=== PATIENT | female | born 1975 | race Hispanic/Latino ===

== ENCOUNTER 2021-03-29 07:43 | Inpatient (IN) | payer MEDICAID, OTHER ==
[~2021-03-29] VITALS: Ht 170.2 cm; Wt 81.6 kg
[2021-03-29] MEDS ORDERED: HYDROCODONE/ACETAMINOPHEN 5/325 MG TAB PO ONE (10:30)
[2021-03-29] MEDS ORDERED: KETOROLAC 15MG/ML VIAL (15MG/ML) IM ONE (10:30)
[2021-03-29 10:57] LABS: BASOPHILS % (AUTO) 0.3 % (0.0-5.0); EOSINOPHILS % (AUTO) 1.1 % (0.0-8.0); LYMPHOCYTES % (AUTO) 5.4 % (21.0-51.0); MEAN CORPUSCULAR HEMOGLOBIN 22.2 pg (27.0-33.0); MEAN CORPUSCULAR VOLUME 73.9 fL (79-99); NEUTROPHILS % (AUTO) 87.5 % (40.0-77.0); PLATELET COUNT (AUTO) 314 K/uL (130-400); RED BLOOD CELL COUNT(AUTO) 5.01 MIL/uL (4.00-5.50); RED CELL DISTRIBUTION WIDTH 17.4 % (11.0-15.5); WHITE BLOOD COUNT (AUTO) 14.1 K/uL (4.8-10.8)
[2021-03-29] MEDS ORDERED: MORPHINE 2 MG SYG IVP ONE (11:00)
[2021-03-29] MEDS ORDERED: ONDANSETRON 4MG INJ IVP ONE (11:00)
[2021-03-29] MEDS ORDERED: ACETAMINOPHEN 500 MG TABLET PO ONE (11:00)
[2021-03-29 11:09] LABS: CARBON DIOXIDE 24 mmol/L (21-32); CHLORIDE 105 mmol/L (101-111); CREATININE 0.8 mg/dL (0.5-1.5); GLOMERULAR FILTR. RATE CALC 83 mL/min (>60); GLUCOSE,RANDOM 150 mg/dL (70-105); POTASSIUM 4.3 mmol/L (3.5-5.1); SODIUM SERUM 140 mmol/L (136-145); UREA NITROGEN, BLOOD 9 mg/dL (7-18)
[2021-03-29 11:13] LABS: ALANINE AMINOTRANSFERASE 54 U/L (12-78); ALBUMIN 3.8 g/dL (3.5-5.0); ALCOHOL, BLOOD < 3 mg/dL (0-10); ASPARTATE AMINOTRANSFERASE 60 U/L (10-37); BILIRUBIN,TOTAL 0.4 mg/dL (0.2-1.0); TOTAL PROTEIN, SERUM 7.7 g/dL (6.0-8.3)
[2021-03-29] MEDS ORDERED: ONDANSETRON 4MG INJ ONE (12:06)
[2021-03-29] MEDS ORDERED: ACETAMINOPHEN 500 MG TABLET ONE ×2 (12:06→12:07)
[2021-03-29] MEDS ORDERED: MORPHINE 2 MG SYG ONE (12:07)
[2021-03-29] MEDS ORDERED: ONDANSETRON 4MG INJ IVP PRN (13:30)
[2021-03-29] MEDS ORDERED: MORPHINE 4 MG SYG IM PRN (13:30)
[2021-03-29] MEDS: 0.9%NACL 1000ML 1,000 ML IV SCH (14:34)
[2021-03-29 17:39] VITALS: BP 172/83
[2021-03-29 17:41] VITALS: BP 125/67
[2021-03-29] MEDS: KETOROLAC 30MG VIAL (30MG/ML) IV PRN (19:24)
[2021-03-29 20:19] VITALS: BP 112/67
[2021-03-29 22:05] LABS: APPEARANCE,URINE Clear (CLEAR); BILIRUBIN,URINE Negative (NEGATIVE); COLOR,URINE Yellow (YELLOW); GLUCOSE, URINE (UA) Negative (NEGATIVE); KETONES,URINE 15 mg/dL (NEGATIVE); LEUKOCYTE ESTERASE ,URINE Small (NEGATIVE); NITRATE,URINE Negative (NEGATIVE); OCCULT BLOOD,URINE Trace (NEGATIVE); PH,URINE 5.5 (5.0-8.0); PROTEIN,URINE POS 1+ mg/dL (NEGATIVE)
[2021-03-29 22:14] LABS: BACTERIA,URINE Few /HPF (None Seen); RBC,URINE 0-1 /HPF (0-1); SQUAMOUS EPITHELIAL CELL,UR 0-2 /HPF (0-2)
[2021-03-29 23:55] VITALS: BP 101/59
[2021-03-30] MEDS: KETOROLAC 30MG VIAL (30MG/ML) IV PRN ×2 (02:38→10:03)
[2021-03-30 05:12] VITALS: BP 110/68
[2021-03-30 07:05] VITALS: BP 109/66
[2021-03-30 11:00] VITALS: BP 119/72
[2021-03-30 15:15] VITALS: BP 109/72
[2021-03-30] MEDS: 0.9%NACL 1000ML 1,000 ML IV SCH (17:46)
[2021-03-30] MEDS: ACETAMINOPHEN WITH CODEINE 1 TAB TAB PO PRN (18:39)
[2021-03-30 20:00] VITALS: BP 114/54
[2021-03-31] VITALS: BP 124/67
[2021-03-31 04:00] VITALS: BP 110/60
[2021-03-31] MEDS: ACETAMINOPHEN WITH CODEINE 1 TAB TAB PO PRN ×3 (05:28→21:02)
[2021-03-31 08:11] VITALS: BP 116/78
[2021-03-31 11:01] VITALS: BP 110/67
[2021-03-31 19:35] VITALS: BP 110/56
[2021-04-01] VITALS: BP 107/64
[2021-04-01 03:51] VITALS: BP 117/72
[2021-04-01] MEDS: ACETAMINOPHEN WITH CODEINE 1 TAB TAB PO PRN (06:15)
[2021-04-01 08:00] VITALS: BP 102/50
[2021-04-01] MEDS ORDERED: LACTULOSE 20 GM/30 ML UDCUP PO SCH (10:30)
[2021-04-01 12:00] VITALS: BP 106/59
[2021-04-01 16:00] VITALS: BP 111/70
== END 2021-04-01 19:10 | disposition home or self-care (01) | DRG 185 ==
LOC: EDH 07:43 → EDHIP 13:00 → UNDOADMOB 13:00 → EDHIP 13:07 → UNDOADMOB 13:07 → OBSVTOIN 13:08 → EDHIP 13:08 → 3AH 15:24 → 3CH 03-30 18:19
PROVIDERS: ADMIT Surgery; ATTEND Surgery
DX: S22.41XA Multiple fractures of ribs, right side, initial encounter for closed fracture (principal); V89.2XXA Person injured in unspecified motor-vehicle accident, traffic, initial encounter; Y93.89 Activity, other specified; Y92.488 Other paved roadways as the place of occurrence of the external cause; Y99.8 Other external cause status
CPT/HCPCS: 36415; 70450; 71045; 71101; 71250; 72125; 74176; 80053; 81001; 84484; 84703; 85025; 87077; 87088; 87186; G0378; J1885; J2270; J2405; J7030

== ENCOUNTER 2024-06-17 10:20 | Inpatient (IN) | payer SELFPAY ==
[~2024-06-17] VITALS: Ht 170.2 cm; Wt 94.8 kg
--- NOTE | 2024-06-17 10:33 | ERN ---
ED Note History of Present Illness Stated Complaint: RT ANKLE PAIN AFTER FALL Chief Complaint: Ankle Problem Time Seen by MD: 10:24 Time Seen by Midlevel: 10:24 Dictation: The patient is a 48-year-old female who presents to the emergency department wit h complaints of right ankle pain after a trip and fall from her 3 steps at home causing her to twist her ankle. Denies any head trauma, loc or any other injuries. Allergies: Coded Allergies: No Allergy Information Available (Verified Allergy, Unknown, 03/29/21) Home Meds No Active Prescriptions or Reported Meds Past Medical History Past Medical History: No Pertinent History Surgical History: None Family History: Negative Social History: Smokers, Lives with family History: Not Applicable LMP: Jun 11, 2024 RN Note Reviewed/Agreed w/PFSH: Yes Review of System Dictation Constitutional: Negative for fever,chills, and weight loss Eyes: Negative for injury, pain,redness, and discharge ENT: Negative for injury,pain or swelling Cardiovascular: Negative for chest pain, palpitations, and edema Respiratory: Negative for shortness of breath, cough, and wheezing, Abdomen/GI: Negative for abdominal pain, nausea, vomiting, diarrhea, and constipation Back: Negative for injury and pain : Negative for injury, bleeding and discharge MS/Extremity: Positive for right ankle pain injury Skin: Negative for rash, and discoloration Neuro: Negative for headache, weakness, numbness, tingling, and seizure Psych: Negative for suicide ideation, homicidal ideation, and hallucinations Initial Vital Sign VS Vital Signs Date Time Temp Pulse Resp B/P (MAP) Pulse Ox O2 Delivery O2 Flow Rate FiO2 06/17/24 10:21 99.3 80 16 115/73 0 Room Air 0 06/17/24 12:00 21 Physical Exam Dictation Vital Signs reviewed General Appearance: Alert, oriented x 3, no acute distress, well developed, nou rished. Head and Face: non-traumatic. Eyes: PERRL, pink conjunctivas, eyelid no trauma, anterior chamber with arcus senilis. Ears: Pinnas intact and no signs of trauma or erythema ear canals clear and no discharge TM no erythema Nose: No discharge, no bleeding. Oropharynx: Mouth normal, tongue pink. pharynx clear,no erythema, tonsils no exudates, no abscesses noted, mucous mem brane moist Neck: Supple, non-tender, no thyromegaly, no masses, no JVD, no bruits Breast:Deferred Chest:No tenderness, no crepitus, no paradoxical movement, no retractions Lungs:Clear, well-ventilated, symmetric, no rales, no wheezing, no rhonchi, no stridor, good breath sounds bilaterally Heart: Regular rate, regular rhythm, no murmur, no gallops Vascular: no peripheral edema, Abdomen: Soft, positive bowel sounds, nondistended, no guarding, nontender, no rebound, no masses no hepatomegaly, no splenomegaly, no Bahena's sign, no hernias. Rectal: Deferred Genital: Deferred Neurological: Normal speech, motor function intact, sensory function intact Musculoskeletal: Neck nontender, full range of motion, back nontender, full range of motion, Extremities: full range of motion , right ankle tenderness, swelling Skin: Color pink, dry, no turgor, no rash, no lacerations, no abrasions, no contusions. Lymphatic: Deferred Results (Laboratory/Radiology) Laboratory/Radiology Laboratory Tests Test 06/17/24 12:45 06/17/24 13:45 Serum Test, Qualitative NEGATIVE (NEGATIVE) White Blood Count 7.7 K/uL (4.8-10.8) Red Blood Count 4.40 MIL/uL (4.00-5.50) Hemoglobin 10.0 g/dL (12.0-16.0) L Hematocrit 33.2 % (36-48) L Mean Corpuscular Volume 75.5 fL (79-99) L Mean Corpuscular Hemoglobin 22.7 pg (27.0-33.0) L Mean Corpuscular Hemoglobin Concent 30.1 g/dL (32.0-36.0) L Red Cell Distribution Width 17.4 % (11.0-15.5) H Platelet Count 359 K/uL (130-400) Mean Platelet Volume 9.3 fL (7.5-10.5) Immature Granulocyte % (Auto) 0.4 % (0-1) Neutrophils (%) (Auto) 65.9 % (40.0-77.0) Lymphocytes (%) (Auto) 22.7 % (21.0-51.0) Monocytes (%) (Auto) 9.3 % (3.0-13.0) Eosinophils (%) (Auto) 0.9 % (0.0-8.0) Basophils (%) (Auto) 0.8 % (0.0-5.0) Neutrophils # (Auto) 5.1 K/uL (1.8-7.7) Lymphocytes # (Auto) 1.8 K/uL (1.0-4.8) Monocytes # (Auto) 0.7 K/uL (0.1-1.0) Eosinophils # (Auto) 0.07 K/uL (0.00-0.70) Basophils # (Auto) 0.06 K/uL (0.00-0.20) Absolute Immature Granulocyte (auto 0.03 K/uL (0-1) Nucleated Red Blood Cells 0.0 % (0.0-0.19) Red Blood Cell Morphology See comments Prothrombin Time 10.2 SEC (9.6-11.6) Prothromb Time International Ratio 0.96 (0.85-1.15) Activated Partial Thromboplast Time 26.9 SEC (26.3-35.5) Sodium Level 142 mmol/L (136-145) Potassium Level 3.9 mmol/L (3.5-5.1) Chloride Level 105 mmol/L (101-111) Carbon Dioxide Level 23 mmol/L (21-32) Blood Urea Nitrogen 7 mg/dL (7-18) Creatinine 0.8 mg/dL (0.5-1.0) Glomerular Filtration Rate Calc 91 mL/min (>90) Random Glucose 119 mg/dL (70-105) H Total Calcium 8.4 mg/dL (8.5-10.1) L Total Bilirubin 0.2 mg/dL (0.2-1.0) Aspartate Amino Transf (AST/SGOT) 27 U/L (10-37) Alanine Aminotransferase (ALT/SGPT) 22 U/L (12-78) Alkaline Phosphatase 81 U/L (50-136) Total Protein 7.5 g/dL (6.0-8.3) Albumin 3.7 g/dL (3.5-5.0) REASON: injury ORDERING PHYSICIAN: AWAIS OROZCO DO PROCEDURE: LEA2OGC - ANKLE COMP 3VWS RT ANKLE COMP 3VWS RT HISTORY: Injury COMPARISON: None TECHNIQUE: 3 images of right ankle were obtained. FINDINGS: Oblique fracture with displacement is seen involving the distal fibula. There is talotibial joint dislocation. There is transverse fracture with displacement involving the medial malleolus of the distal tibia. Soft tissue swelling is seen. Degenerative changes are seen. IMPRESSION: 1. Findings as described above. Labs Reviewed?: Yes ED Course ED Course Orders Procedure Category Date Status Time Ankle Comp 3vws Rt RAD 06/17/24 Resulted 10:22 Hydrocodone/Apap PHA 06/17/24 Complete 5/325 ([place] 5/325mg) 10:30 Ketorolac 60mg/2ml PHA 06/17/24 Complete (Toradol 60mg/2ml) 10:30 Testing, LAB 06/17/24 Complete Serum Hcg 13:29 Morphine 2mg Syg PHA 06/17/24 Complete (Morphine 2mg Syg) 13:35 Morphine 2mg Syg PHA 06/17/24 Complete (Morphine 2mg Syg) 14:00 Edm Admit Bridge Order ADM 06/17/24 Transmitted 14:07 Admit From Emergency CPOE 06/17/24 Transmitted Room 13:46 Obtain Consent For: CPOE 06/17/24 Transmitted 13:46 Heart Healthy Diet DIET 06/17/24 Transmitted Lunch Npo After Midnight ALEXANDER 06/17/24 Transmitted 13:46 Activity: Bed Rest CPOE 06/17/24 Transmitted 13:46 Elevate Legs Above CPOE 06/17/24 Transmitted Heart(Whc) 13:46 Maintain Iv CPOE 06/17/24 Transmitted 13:46 0.9%Nacl 1000ml (Ns PHA 06/17/24 In Process 1000ml) 14:00 Enoxaparin Sodium 30 PHA 06/17/24 Complete Mg/0.3 Ml (Lovenox) 14:00 Morphine 2mg Syg PHA 06/17/24 In Process (Morphine 2mg Syg) 14:00 Hydrocodone/Apap PHA 06/17/24 In Process 5/325 ([place] 5/325mg) 14:00 Hydrocodone/Apap PHA 06/17/24 Complete 5/325 ([place] 5/325mg) 14:00 Cefazolin Sodium PHA 06/18/24 In Process (Ancef) 14:00 Is Q2hrs While Awake RT 06/17/24 Transmitted 13:46 Chest 1vw RAD 06/17/24 Resulted 13:46 Ondansetron 4mg Inj PHA 06/17/24 In Process (Zofran 4mg Inj) 14:00 Admit Orders ADM 06/17/24 Verified 13:46 Cefazolin Sodium 1 Gm PHA 06/17/24 Complete Vial (Ancef 1 Gm V 17:01 Cbc With Differential LAB 06/17/24 Complete 17:35 Comprehensive LAB 06/17/24 Complete Metabolic Panel 17:35 Pt And Ptt LAB 06/17/24 Complete 17:35 Prothrombin Time With LAB 06/17/24 Complete INR 17:35 Ankle Comp 3vws Rt RAD 06/18/24 Logged 13:00 Vital Signs Date Time Temp Pulse Resp B/P (MAP) Pulse Ox O2 Delivery O2 Flow Rate FiO2 06/18/24 08:07 98.1 69 18 154/92 99 06/18/24 04:00 98.4 66 20 129/85 100 Room Air 06/18/24 00:00 98.2 65 20 123/75 100 Room Air 06/17/24 20:00 98.8 74 20 111/73 99 Room Air 06/17/24 20:00 99 Room Air* 0 06/17/24 18:11 98.1 71 18 121/67 99 Nasal Cannula 1.0 06/17/24 18:00 99 Room Air* 0 21 06/17/24 16:00 98.4 84 14 127/67 98 Room Air* 0 06/17/24 13:00 99.0 82 16 117/71 0 Room Air* 0 06/17/24 12:00 99.0 85 16 121/75 100 Room Air* 0 06/17/24 10:21 99.3 80 16 115/73 0 Room Air 0 Medical Decision Making MDM MDM: The patient is a 48-year-old female who presents to the emergency department with complaints of right ankle pain after a trip and fall from her 3 steps at home causing her to twist her ankle. Denies any head trauma, loc or any other injuries. X-ray showed oblique fracture with displacement in the distal fibula. talotibial joint dislocation. transverse fracture with displacement involving the medial malleolus of the distal tibial. Case discussed with who accepts admision. Differential diagnosis: Ankle sprain, ankle fracture, ankle dislocation Rationale: Tests considered and ordered secondary to shared decision making include: labs, ECG and radiology Previous outside records reviewed: Old ER visits. Risk of complication and/or morbidity or mortality of patient management: None Medications-Per medication reconciliation Need for hospitalization: Patient does meet criteria for hospitalization. Need for emergency major/minor surgery: No There are no social concerns with this patient. Prescription drug management Prescriptions will include symptomatic care Patient's prior external medical records from other ER visits were reviewed by me as indicated. Prior testing and results from previous visits were reviewed. Prior tests were taken into account with medical decision making and resource utilization, independent historian/historians were used to obtain complete medical history. I independently interpreted the test that were performed, results were reviewed by me and considered findings on radiology if ordered. Medical management and examination interpretation discussions were had by me with other qualified healthcare professionals as indicated for the patient's care. DX & DISP Disposition: Inpatient Decision to Admit Date: Jun 17, 2024 Decision to Admit Time: 14:06 Departure Impression: Primary Impression: Right ankle closed, dsplaced bimalleolar fracture Condition: Stable Scripts No Active Prescriptions or Reported Meds Referrals: SELF,REFERRAL (PCP) I have reviewed the case, and I agree with, Diagnosis and Plan I performed a substantive portion of the visit. I have reviewed and personally made and approve the management plan that is documented in the notes by myself with RENATO/resident. I acknowledged full responsibility for the patient's management plan. ALVARO BRITO Jun 17, 2024 10:33 AWAIS OROZCO DO Jun 18, 2024 08:53
--- NOTE | 2024-06-17 10:54 | NUR ---
ASSUMED CARE AT THIS TIME PT PLACED IN FAST TRACK. AOX4 HAD A FALL 2 HRS HOUSING INSPECTORS STATES FELL DOWN THE STAIRS 2 OR 3RD STEP AFTER STEPPING WRONG. DENIES HITTING HEAD DENIES LOC, DENIES LOC. NOTED RT ANKLE SWELLING, PAIN 09/26, PMS INTACT. NONAMBULATORY
[2024-06-17] MEDS: HYDROcodone/APAP 5/325 1 TAB TABLET PO ONE (10:55)
[2024-06-17] MEDS: ketOROlac 60 MG VIAL (30MG/ML) IM ONE (10:55)
--- NOTE | 2024-06-17 12:52 | HMCIMG ---
ANKLE COMP 3VWS RT HISTORY: Injury COMPARISON: None TECHNIQUE: 3 images of right ankle were obtained. FINDINGS: Oblique fracture with displacement is seen involving the distal fibula. There is talotibial joint dislocation. There is transverse fracture with displacement involving the medial malleolus of the distal tibia. Soft tissue swelling is seen. Degenerative changes are seen. IMPRESSION: 1. Findings as described above.
--- NOTE | 2024-06-17 13:10 | NUR ---
pt moved to room 12 for admission. tate cornejo at bedside with dr leon
--- NOTE | 2024-06-17 13:10 | NUR ---
DR ALVAREZ AT BEDSIDE
--- NOTE | 2024-06-17 13:50 | NUR ---
ASSUMED PATIENTS CARE. PLACED 20G ON RIGHT ANTECUBITAL.
[2024-06-17] MEDS: morPHINE 2 MG SYG ONE (13:52)
[2024-06-17] MEDS: morPHINE 2 MG SYG IVP ONE (13:52)
[2024-06-17] MEDS ORDERED: ondanSETRON 4MG INJ IVP PRN (14:00)
[2024-06-17] MEDS ORDERED: HYDROcodone/APAP 5/325 1 TAB TABLET PO PRN (14:00)
--- NOTE | 2024-06-17 14:30 | NUR ---
ASSISSTED DR. ALVAREZ TO STABILIZE PATIENTS RIGHT ANCKE.
--- NOTE | 2024-06-17 14:48 | ERN ---
CONSULTATION NOTE DATE OF ER CONSULTATION: DATE: 06/17/24 REASON FOR CONSULTATION: Right ankle fracture HISTORY OF PRESENT ILLNESS: The patient is a 48-year-old female that sustained in a fall going down the steps at home twisting her right ankle. She landed on cement and reports a significant pain to the right ankle as with the swelling and inability to bear weight. She was brought to the emergency room for evaluation was found to have a displaced trimalleolar fracture of the right ankle. We were consulted for evaluation and treatment PAST MEDICAL HISTORY: Denies medical illnesses PAST SURGICAL HISTORY: Denies surgeries ALLERGIES: Coded Allergies: No Allergy Information Available (Verified Allergy, Unknown, 03/29/21) SOCIAL HISTORY: The patient drinks and smokes half a pack a day when she is off. She works at a restaurant FAMILY HISTORY No relevant HOME MEDS: No Active Prescriptions or Reported Meds INPATIENT MEDS: Current Medications Medications Dose Ordered Sig/Sahra Start Time Stop Time Status Last Admin Sodium Chloride 1,000 ml @ 75 mls/hr [id number] 06/17/24 14:00 07/17/24 13:59 Morphine Sulfate 2 mg Q4H PRN 06/17/24 14:00 06/24/24 13:59 Acetaminophen/ Hydrocodone Bitart 1 tab Q6H PRN 06/17/24 14:00 06/22/24 13:59 Cefazolin Sodium 2 gm ONCALL ONCE 06/18/24 14:00 06/18/24 14:01 Ondansetron HCl 4 mg Q6H PRN 06/17/24 14:00 07/17/24 13:59 VITAL SIGNS Vital Signs Date Time Temp Pulse Resp B/P (MAP) Pulse Ox O2 Delivery O2 Flow Rate FiO2 06/17/24 10:21 99.3 80 16 115/73 0 Room Air 0 REVIEW OF SYSTEMS Negative PHYSICAL EXAM Awake, alert and oriented x3, severe distress. HEENT: Atraumatic, normocephalic. Eyes with PERRLA, EOMI. Mouth with adequate dentition, well-hydrated mucosa. Ears and nose with no discharge no deformities. Neck: Supple, no masses, central trachea, normal pulses. No pain on range of motion. Chest: Lungs clear to auscultation, heart with regular rate and rhythm with no murmurs. Abdomen: Soft, nontender, nondistended, bowel sounds present. Genital and rectal exam: Deferred. Extremities: Upper extremities within normal limits as well as the left lower extremity. Right lower extremity has very obvious edema, no abrasions, no blistering, no ecchymosis. She is very tender to palpation and adequate alignment is present. Neuro: Nonfocal LABORATORY RESULTS Laboratory Tests 06/17/24 12:45: Serum Test, Qualitative NEGATIVE RADIOLOGY Three views of the right ankle revealed the presence of a displaced trimalleolar fracture of the ankle with a long oblique fracture of the lateral malleolus, syndesmosis disruption, a small medial malleolar fragment fracture. PROBLEM LIST Right ankle displaced, closed, bimalleolar fracture with syndesmosis disruption. PLAN The patient will be admitted. She was placed in a posterior splint, well padded. She will keep the leg elevated. Tomorrow we will check her skin to make sure there are no blisters at that the edema has gone down. She will be bedrest with legs elevated. She will be in a normal diet and NPO after midnight. Antibiotics have been ordered for preoperative infusion as well as a dose of Lovenox will be given today. Pain management. RONALDO ALVAREZ MD Jun 17, 2024 14:48
--- NOTE | 2024-06-17 15:51 | HMCIMG ---
CHEST 1VW HISTORY: Preop COMPARISON: 03/31/2021 FINDINGS: A frontal projection of the chest was obtained. No acute pulmonary infiltrates is seen. The heart is normal in size. Prominent interstitial markings are seen. Degenerative changes are seen. IMPRESSION: 1. No acute pulmonary infiltrate is seen.
--- NOTE | 2024-06-17 17:00 | NUR ---
OBTAINED CONSENT FOR PROCEDURE FOR TOMORROW IN AM, FAXED ORDER TO SMALL PIECE CUTTER MRS. NAVARRO. SHE VERBALIZED GETTING THE FAX. DISCUSSED WIT PATIENT PLAN OF CARE, AND PAIN MANAGEMENT. PATIENT VERBALIZED UNDERSTANDING.
[2024-06-17] MEDS: ENOXAPARIN SODIUM 30 MG/0.3 ML SQ ONE (17:06)
[2024-06-17] MEDS: 0.9%NACL 1000ML 1,000 ML IV SCH (17:06)
[2024-06-17] MEDS: HYDROcodone/APAP 5/325 1 TAB TABLET PO PRN (17:07)
[2024-06-17] MEDS: ceFAZolin SODIUM 1 GM VIAL ONE (17:13)
--- NOTE | 2024-06-17 17:42 | NUR ---
CALLED MRS. ARLEN LUCAS AND GAVE HER REPORT. NOTIFY HER THAT I OBTAINED CONSENT FOR PROCEDURE AND SPIRITUAL ADVISOR WAS NOTIFIED. SHE VERBALIZED UNDERSTANDING.
[2024-06-17 17:44] LABS: BASOPHILS # (AUTO) 0.06 K/uL (0.00-0.20); BASOPHILS % (AUTO) 0.8 % (0.0-5.0); EOSINOPHILS # (AUTO) 0.07 K/uL (0.00-0.70); EOSINOPHILS % (AUTO) 0.9 % (0.0-8.0); HEMATOCRIT 33.2 % (36-48); IMMATURE GRANULOCYTE ABSOLUTE 0.03 K/uL (0-1); LYMPHOCYTES # (AUTO) 1.8 K/uL (1.0-4.8); LYMPHOCYTES % (AUTO) 22.7 % (21.0-51.0); MEAN CORPUSCULAR HEMOGLOBIN 22.7 pg (27.0-33.0); MEAN CORPUSCULAR HGB CONC 30.1 g/dL (32.0-36.0); MEAN CORPUSCULAR VOLUME 75.5 fL (79-99); MONOCYTES # (AUTO) 0.7 K/uL (0.1-1.0); MONOCYTES % (AUTO) 9.3 % (3.0-13.0); NEUTROPHILS # (AUTO) 5.1 K/uL (1.8-7.7); NEUTROPHILS % (AUTO) 65.9 % (40.0-77.0); PLATELET COUNT (AUTO) 359 K/uL (130-400); RED CELL DISTRIBUTION WIDTH 17.4 % (11.0-15.5); WHITE BLOOD COUNT (AUTO) 7.7 K/uL (4.8-10.8)
[2024-06-17 17:50] LABS: INR 0.96 (0.85-1.15); PROTHROMBIN TIME 10.2 SEC (9.6-11.6)
[2024-06-17 17:51] LABS: PARTIAL THROMBOPLASTIN TIME 26.9 SEC (26.3-35.5)
[2024-06-17 17:56] LABS: CREATININE 0.8 mg/dL (0.5-1.0); POTASSIUM 3.9 mmol/L (3.5-5.1)
[2024-06-17 17:58] LABS: ALBUMIN 3.7 g/dL (3.5-5.0); BILIRUBIN,TOTAL 0.2 mg/dL (0.2-1.0); TOTAL PROTEIN, SERUM 7.5 g/dL (6.0-8.3)
[2024-06-17 18:00] VITALS: BP 114/67; PULSE 73; RESP 15; TEMP 98.4; O2SAT 99
--- NOTE | 2024-06-17 18:00 | NUR ---
PATIENT DOES NOT TAKE ANY HOME MEDICATIONS.
--- NOTE | 2024-06-17 18:00 | NUR ---
VITAL SIGNS AND NEUROVASCULAR CHECK DONE BEFORE PATIENT GOT TRANSFERRED TO ROOM 403.
[2024-06-17 18:11] VITALS: BP 121/67; PULSE 71; RESP 18; TEMP 98
[2024-06-17 20:00] VITALS: BP 111/73; PULSE 74; RESP 20; TEMP 98.7; O2SAT 99
[2024-06-17] MEDS: morPHINE 2 MG SYG IVP PRN (21:39)
[2024-06-18] VITALS (29 sets, daily range): BP systolic 115–154; BP diastolic 56–92; PULSE 58–81; RESP 15–20; TEMP 97.3–209.3; O2SAT 99–100
--- NOTE | 2024-06-18 12:20 | NUR ---
dr leon to open rle splint at pts side slight deformity noted no wounds pt c/o pain ice packs applied per dr leon request Addendum: 06/18/24 at 1336 by RAMON TEJADA RN RN Amended: Links added.
[2024-06-18] MEDS: acetaMINOPHEN 500 MG TABLET PO ONE (13:20)
[2024-06-18] MEDS: ceFAZolin SODIUM 2 GM VIAL ONE (13:37)
[2024-06-18] MEDS: ceFAZolin SODIUM 2 GM VIAL IVPB ONE (13:37)
[2024-06-18] MEDS ORDERED: ROPivacaine 0.5% 5MG/ML 30ML ONE ×2 (15:43)
[2024-06-18] MEDS: ceFAZolin SODIUM 1 GM VIAL IVPB ONE (15:49)
[2024-06-18] MEDS ORDERED: ceFAZolin SODIUM 1 GM VIAL ONE (16:11)
[2024-06-18] MEDS ORDERED: rocuRONium bROMide 10MG/1ML 5ML VL ONE (16:15)
[2024-06-18] MEDS ORDERED: FENTanyl CITRate PF 50 MCG/1 ML 2ML VIAL ONE (16:17)
[2024-06-18] MEDS ORDERED: ondanSETRON 4MG INJ ONE (16:24)
[2024-06-18] MEDS ORDERED: dexaMETHasone SOD PHOSPHATE 10MG/ML 1ML VIAL ONE (16:25)
[2024-06-18] MEDS ORDERED: NEOSTIGMINE METHYLSULFATE 1MG/ML IV ONE (16:41)
[2024-06-18] MEDS ORDERED: GLYCOPYRROLATE 0.2 MG/ML 5 ML VIAL ONE (16:41)
[2024-06-18] MEDS ORDERED: phenylEPHRINE HCL 10 MG/ML 1ML VIAL IV ONE (16:41)
[2024-06-18] MEDS ORDERED: ketOROlac 30MG VIAL (30MG/ML) ONE (17:37)
--- NOTE | 2024-06-18 17:58 | OP ---
Operative Note: DATE OF PROCEDURE: 06/18/24 SURGEON: RONALDO ALAVREZ MD GUN NUMBER: [[id number]] ANESTHESIA: [GENERAL ANESTHESIA PLUS REGIONAL FEMORAL AND POPLITEAL BLOCKS] ANESTHESIOLOGIST/MANAGER OF ALLIED HEALTH SERVICES: [GAURAV ASKEW CRNA] PREOPERATIVE DIAGNOSIS: [RIGHT ANKLE BIMALLEOLAR FRACTURE, CLOSED, DISPLACED] POSTOPERATIVE DIAGNOSIS: [RIGHT ANKLE TRIMALLEOLAR FRACTURE, CLOSED, DISPLACED] IMPLANTS: [GILES AND NEPHEW SMALL FRAG 1/3 TUBULAR PLATE, EIGHT HOLES WITH LOCKING SCREWS X6. TWO 4.0 CANNULATED SHORT THREAD SCREWS] PROCEDURE: [ORIF OF TRIMALLEOLAR FRACTURE] ESTIMATED BLOOD LOSS: [50 ML] INDICATIONS: [48-YEAR-OLD FEMALE THAT SUSTAINED A TWISTING INJURY FALLING FROM A STAIR AT HOME. PATIENT PRESENTS TO THE EMERGENCY ROOM WITH A DISPLACED FRACTURE OF THE ANKLE. BROUGHT TO THE OPERATING ROOM FOR ORIF. PROCEDURE UNDERSTOOD, RISKS, BENEFITS AND POSSIBLE COMPLICATIONS AND AGREED SIGNED THE CONSENT FORM] DESCRIPTION OF PROCEDURE: [AFTER ADEQUATE GENERAL ANESTHESIA WAS ACHIEVED AND REGIONAL BLOCK OBTAINED THE PATIENT'S RIGHT LOWER EXTREMITY WAS PREPPED AND DRAPED IN THE USUAL MANNER PREVIOUS PLACEMENT OF THE TOURNIQUET IN THE PROXIMAL THIGH. THE EXTREMITY WAS ELEVATED AND EXSANGUINATED WITH AN ESMARCH BANDAGE THE TOURNIQUET WAS INFLATED TO 25 MMHG. WITH THE USE OF THE C-ARM WE VISUALIZED THE FRACTURE AND WE NOTED THE DISPLACED IN THE PLANTAR THE SAME TIME NOTED THAT THE PATIENT HAD A DISPLACED POSTERIOR MALLEOLUS FRACTURE THAT CONTAIN LESS THAN 20% OF THE ARTICULAR SURFACE. ATTENTION WAS GIVEN TO THE LATERAL ASPECT OF THE ANKLE WHERE A LONGITUDINAL INCISION WAS CARRIED DOWN FROM THE TIP OF THE MALLEOLUS PROXIMALLY FOR APPROXIMATELY 12 CM THROUGH THE SKIN AND SUBCUTANEOUS TISSUE. WE PROCEEDED TO DISSECT FREE THE FIBULA WHERE THE FRACTURE WAS NOTED TO BE PRESENT AND HAD A LONG OBLIQUE PATTERN. WITH THE USE OF THE BONE CLAMP AND THE FRACTURE WAS REDUCED. A LAG SCREW WAS PLACED AT THE FRACTURE SITE PERPENDICULAR TO THE FRACTURE LINE PREVIOUS DRILLING OF BOTH CORTICES OBTAINING AN ADEQUATE FIXATION OF THE FRACTURE. THEN A GILES AND NEPHEW 1/3 TUBULAR PLATE WAS MOLDED AND WAS APPLIED AND SECURED 1ST WITH ONE DISTAL LOCKING SCREW AND THEN ONE PROXIMAL CORTICAL SCREW. ONCE THE FRACTURE WAS ADEQUATELY NOTED TO BE REDUCED AND THE PLATE IN ADEQUATE POSITION WE PROCEEDED TO COMPLETE THE REDUCTION WITH APPLICATION OF 2 MORE LOCKING SCREWS DISTALLY AND 2 MORE SCREWS PROXIMALLY. X-RAYS TAKEN REVEALED AN ADEQUATE REDUCTION OF THE FRACTURE. THE SYNDESMOSIS WAS THEN TESTED AND NOTED TO BE INTACT. THE POSTERIOR MALLEOLUS WAS ALSO EVALUATED AND NOTED TO BE PERFECTLY REDUCED. ATTENTION WAS THEN GIVEN TO THE MEDIAL MALLEOLUS WHERE IN THE X-RAYS AP VIEW IT WAS NOTED TO BE PERFECTLY REDUCED, BUT NOT SO IN THE LATERAL VIEW WHERE THE LARGE GUIDE WAS PRESENT LIKELY RELATED TO SOFT TISSUE INTERFERENCE. FOR THIS REASON A LONGITUDINAL INCISION WAS CARRIED DOWN IN THE MEDIAL MALLEOLUS THROUGH THE SKIN FOLLOWED BY DISSECTION OF THE SUBCUTANEOUS TISSUE AND THE FRACTURE WAS EASILY IDENTIFIED AND THE SUSP ECTED SOFT TISSUE FOR THE PERIOSTEUM WAS IN BETWEEN THE FRACTURE FRAGMENTS, THIS WAS REMOVED AND EXCISED. WE THEN PROCEEDED TO MAKE A SMALL DRILL HOLE IN THE PROXIMAL PORTION OF THE FRACTURE AND THEN USING THIS HOLE WE APPLIED A CLAMP FOR REDUCTION THE DISTAL FRAGMENT AND THEN TWO GUIDEWIRES WITH THE PLATE IN A PARALLEL FASHION AND ONCE SATISFIED WITH THE POSITION OF THESE WIRES WE PROCEEDED THEN TO APPLY 2 4.0 CANNULATED SCREWS ALSO FROM GILES AND NEPHEW AND OBTAINED AN ADEQUATE REDUCTION OF THE MEDIAL MALLEOLUS FRACTURE. FINAL X-RAYS REVEALED AN ACCEPTABLE REDUCTION OF THE FRACTURE. THE WOUNDS WERE THEN COPIOUSLY IRRIGATED WITH ANTIBIOTIC SOLUTION AND WE PROCEEDED TO CLOSING WITH A APPROXIMATION OF THE SUBCUTANEOUS TISSUE WITH 2-0 VICRYL INVERTED STITCHES IN BOTH SIDES FOLLOWED BY APPROXIMATION OF THE SKIN WITH THE USE OF DEAN. THE WOUNDS WERE COVERED WITH XEROFORM, 4X4S AND CAST PADDING WAS APPLIED FOLLOWED BY A 2ND CAST PADDING THAT INVOLVED ALL OF THE LOWER LEG AND FOOT AND THEN A POSTERIOR SPLINT MADE OUT OF PLASTER OF NEL, SHORT LEG LENGTH WAS THEN APPLIED AND SECURE WITH THE USE OF MICHELE BANDAGES. ONCE THE CAST SPLINT WAS DRY WE PROCEEDED TO AWAKEN THE PATIENT UP AND EXTUBATED, AND TAKING HER THEN TO RECOVERY ROOM FOR FOLLOW-UP BY ANESTHESIA. THERE WERE NO COMPLICATIONS IN THE PROCEDURE] RONALDO ALVAREZ MD Jun 18, 2024 17:58
[2024-06-18] MEDS ORDERED: TEMAZepam 15 MG CAPSULE PO PRN (18:30)
[2024-06-18] MEDS ORDERED: ketOROlac 30MG VIAL (30MG/ML) IV PRN (18:30)
[2024-06-18] MEDS ORDERED: hydroMORPHone 0.5 MG SYG (0.5MG/0.5ML) IVP PRN (18:30)
[2024-06-18] MEDS ORDERED: DiphenhydrAMINE HCL 25 MG CAPSULE PO PRN (18:30)
[2024-06-18] MEDS ORDERED: 0.9%NACL 1000ML 1,000 ML IV SCH (18:30)
[2024-06-18] MEDS ORDERED: PROMETHAZINE HCL 25 MG/ML 1ML AMPULE IM PRN (18:30)
[2024-06-19] VITALS (9 sets, daily range): BP systolic 111–138; BP diastolic 50–81; PULSE 60–91; RESP 18–20; TEMP 98.1–98.6; O2SAT 98–100
[2024-06-19] MEDS: ceFAZolin SODIUM 2 GM VIAL IVP SCH (01:15)
--- NOTE | 2024-06-19 07:51 | PN ---
POD # 1 S/P right ankle trimalleolar fracture. VSS, afebrile. Dressing/splint intact Awake, alert, oriented, in no distress Normal ventilatory effort. Still under the effect of the nerve blocks, insensate foot and no toes ROM. A:, S/P right ankle trimalleolar fracture P: Physical therapy to assess. If she does well she will be dismiss this evening or tomorrow. Vitals/Labs Vital Signs Date Time Temp Pulse Resp B/P (MAP) Pulse Ox O2 Delivery O2 Flow Rate FiO2 06/19/24 04:00 98.4 60 20 120/79 100 Room Air 06/19/24 01:15 20.0 06/18/24 20:00 28 Medications Current Medications Acetaminophen/ Hydrocodone Bitart 1 tab ONCE ONCE PO Last administered on 06/17/24at 10:55; Start 06/17/24 at 10:30; Stop 06/17/24 at 10:33; Status DC Ketorolac Tromethamine 60 mg ONCE ONCE IM Last administered on 06/17/24at 10:55; Start 06/17/24 at 10:30; Stop 06/17/24 at 10:32; Status DC Morphine Sulfate 2 mg STK-MED ONCE .ROUTE Last administered on 06/17/24at 13:52; Start 06/17/24 at 13:35; Stop 06/17/24 at 13:36; Status DC Morphine Sulfate 2 mg ONCE ONCE IVP; Start 06/17/24 at 14:00; Stop 06/17/24 at 14:01; Status DC Sodium Chloride 1,000 ml @ 75 mls/hr [id number] IV Last administered on 06/18/24at 07:18; Start 06/17/24 at 14:00; Stop 07/17/24 at 13:59 Enoxaparin Sodium 30 mg ONCE ONCE SQ Last administered on 06/17/24at 17:06; Start 06/17/24 at 14:00; Stop 06/17/24 at 14:19; Status DC Morphine Sulfate 2 mg Q4H PRN IVP Last administered on 06/18/24at 07:49; Start 06/17/24 at 14:00; Stop 06/24/24 at 13:59 Acetaminophen/ Hydrocodone Bitart 1 tab Q6H PRN PO Last administered on at 17:07; Start 06/17/24 at 14:00; Stop 06/22/24 at 13:59 Acetaminophen/ Hydrocodone Bitart 2 tab Q6H PRN PO; Start 06/17/24 at 14:00; Stop 06/17/24 at 14:20; Status DC Cefazolin Sodium 2 gm ONCALL ONCE IVPB; Start 06/18/24 at 14:00; Stop 06/18/24 at 14:01; Status DC Ondansetron HCl 4 mg Q6H PRN IVP; Start 06/17/24 at 14:00; Stop 07/17/24 at 13:59 Cefazolin Sodium 1 gm STK-MED ONCE .ROUTE; Start 06/17/24 at 17:01; Stop 06/17/24 at 17:01; Status DC Cefazolin Sodium 2 gm STK-MED ONCE .ROUTE; Start 06/18/24 at 12:11; Stop 06/18/24 at 12:12; Status DC Acetaminophen 1,000 mg ONCE ONCE PO Last administered on 06/18/24at 13:20; Start 06/18/24 at 13:30; Stop 06/18/24 at 13:31; Status DC Ropivacaine 150 mg STK-MED ONCE .ROUTE; Start 06/18/24 at 15:43; Stop 06/18/24 at 15:44; Status DC Ropivacaine 150 mg STK-MED ONCE .ROUTE; Start 06/18/24 at 15:43; Stop 06/18/24 at 15:44; Status DC Cefazolin Sodium 1 gm STK-MED ONCE .ROUTE; Start 06/18/24 at 16:11; Stop 06/18/24 at 16:11; Status DC Rocuronium [place] 50 mg STK-MED ONCE .ROUTE; Start 06/18/24 at 16:15; Stop 06/18/24 at 16:16; Status DC Fentanyl Citrate 100 mcg STK-MED ONCE .ROUTE; Start 06/18/24 at 16:17; Stop 06/18/24 at 16:17; Status DC Ondansetron HCl 4 mg STK-MED ONCE .ROUTE; Start 06/18/24 at 16:24; Stop 06/18/24 at 16:25; Status DC Dexamethasone Sodium Phosphate 10 mg STK-MED ONCE .ROUTE; Start 06/18/24 at 16:25; Stop 06/18/24 at 16:25; Status DC Cefazolin Sodium 1 gm STK-MED ONCE IVPB Last administered on 06/18/24at 15:49; Start 06/18/24 at 15:49; Stop 06/18/24 at 16:28; Status DC Cefazolin Sodium 2 gm STK-MED ONCE IVPB Last administered on 06/18/24at 16:10; Start 06/18/24 at 16:10; Stop 06/18/24 at 16:28; Status DC Glycopyrrolate 1 mg STK-MED ONCE .ROUTE; Start 06/18/24 at 16:41; Stop 06/18/24 at 16:41; Status DC Neostigmine Methylsulfate 10 mg STK-MED ONCE IV; Start 06/18/24 at 16:41; Stop 06/18/24 at 16:41; Status DC Phenylephrine HCl 10 mg STK-MED ONCE IV; Start 06/18/24 at 16:41; Stop 06/18/24 at 16:41; Status DC Ketorolac Tromethamine 30 mg STK-MED ONCE .ROUTE; Start 06/18/24 at 17:37; Stop 06/18/24 at 17:37; Status DC Sodium Chloride 1,000 ml @ 100 mls/hr Q10H IV; Start 06/18/24 at 18:30; Stop 06/19/24 at 18:29 Acetaminophen/ Hydrocodone Bitart 1 tab Q4H PRN PO; Start 06/18/24 at 18:30; Stop 06/23/24 at 18:29 Acetaminophen/ Hydrocodone Bitart 2 tab Q4H PRN PO; Start 06/18/24 at 18:30; Stop 06/23/24 at 18:29 Enoxaparin Sodium 40 mg DAILY SQ; Start 06/19/24 at 09:00; Stop 07/19/24 at 08:59 Polyethylene Glycol 17 gm DAILY PO; Start 06/19/24 at 09:00; Stop 07/19/24 at 08:59 Bisacodyl 10 mg DAILY PRN PO; Start 06/20/24 at 18:30; Stop 07/20/24 at 18:29 Ketorolac Tromethamine 30 mg Q6H PRN IV; Start 06/18/24 at 18:30; Stop 06/23/24 at 18:29 Temazepam 15 mg HS PRN PO; Start 06/18/24 at 18:30; Stop 07/18/24 at 18:29 Promethazine HCl 25 mg Q4H PRN IM; Start 06/18/24 at 18:30; Stop 07/18/24 at 18:29 Diphenhydramine HCl 25 mg Q6H PRN PO; Start 06/18/24 at 18:30; Stop 07/18/24 at 18:29 Cefazolin Sodium 2 gm Q8H IVP Last administered on 06/19/24at 01:15; Start 06/18/24 at 18:30; Stop 06/19/24 at 02:31; Status DC Hydromorphone HCl 0.5 mg Q4H PRN IVP; Start 06/18/24 at 18:30; Stop 06/23/24 at 18:29 RONALDO ALVAREZ MD Jun 19, 2024 07:50
[2024-06-19] MEDS: polyETHYLene GLYCol 3350 17 GM POWD.PACK PO SCH (08:24)
[2024-06-19] MEDS: ENOXAPARIN SODIUM 40 MG/0.4 ML SYRINGE SQ SCH (08:24)
[2024-06-19] MEDS: HYDROcodone/APAP 5/325 1 TAB TABLET PO PRN ×2 (08:33→13:41)
--- NOTE | 2024-06-19 17:32 | HMCIMG ---
ANKLE COMP 3VWS RT HISTORY: ORIF COMPARISON: None TECHNIQUE: Fluoroscopic images of the right ankle were obtained. FINDINGS: Please see procedure report by referring physician. IMPRESSION: 1. Findings as described above.
[2024-06-20 04:00] VITALS: BP 118/77; PULSE 69; RESP 18; TEMP 98.4
[2024-06-20 07:30] VITALS: BP 140/86; PULSE 68; RESP 20; TEMP 98.6
[2024-06-20 12:00] VITALS: BP 126/69; PULSE 87; RESP 20; TEMP 98.1
[2024-06-20 16:00] VITALS: BP 120/67; PULSE 84; RESP 20; TEMP 98.9
--- NOTE | 2024-06-20 17:27 | NUR ---
DCP -- Home Patient states she lives with Jazlyn Mahoney, Daughter [phone] and father. 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 States she is able to complete ADL's on her own. Denies medical devices. Denies home health services, home care provider or dialysis. PCP - None per patient [facility] - [facility]. Upon discharge, states Jazlyn Mahoney, Daughter [phone] and family will assist with care, as needed. Requests a walker to get home; notified STANISLAV and MERRITT. Referred to Financial Counseling. Addendum: 06/20/24 at 1730 by AMERICA SOLIS RN CM Amended: Links added.
[2024-06-20] MEDS ORDERED: HYDR-4060 PO (17:43)
--- NOTE | 2024-06-20 18:15 | DS ---
DISCHARGE SUMMARY [Date of admission: 06/17/2024 Date of discharge: 06/20/2024. Final diagnosis: Right ankle trimalleolar fracture. Surgical procedures: Open reduction internal fixation of right ankle trimalleolar fracture. 06/18/2024. Hospital course: The patient is a 48-year-old female with history of injury to the right ankle that occur at home when she was going down the steps and twisted her ankle. The patient presented to the emergency room where she was found to have a fracture of the ankle, displaced and closed and was admitted for treatment. Previous Medical history : Denies medical illnesses. Previous surgical history: Denies any surgeries. Social history: The patient is a smoker and drinks socially. She works at a fast food restaurant. Family history: Not relevant for illness. Physical exam: Please see history and physical on admission. Hospital course: The patient was admitted and taken to the operating room the day after admission for an open reduction internal fixation of what was found to be a trimalleolar fracture instead. Postoperatively the patient remained hemodynamically stable and afebrile. She had adequate pain control with a nerve block and then with pain medication. The patient was seen by physical therapy who drain her to do gait training, none weight-bearing status in the affected extremity. On postop day 2. The arrangements were completed for the patient to go home. Condition on discharge: Good. Plan: The patient will be dismissed and go home. She is to continue observing precautions with weight-bearing. Keep the leg elevated and maintain the splint dry and clean. She is to return to my office on the 02 of July for splint removal, cast placement after stitches removed also. The patient is going to be on hydrocodone for pain and she is to take baby aspirin twice a day. ] RONALDO ALVAREZ MD Jun 20, 2024 18:15
[2024-06-20] MEDS ORDERED: BisaCODYL 5 MG TABLET.DR PO PRN (18:30)
--- NOTE | 2024-06-20 20:30 | NUR ---
DISCHARGE PATIENT AWAKE AND ALERT. VOICES ALL NEEDS. NO COMPLAINTS OF PAIN VOICED AT THIS TIME. PATIENT GIVEN DISCHARGE INSTRUCTIONS AND EDUCATION. PATIENT VERBALIZED UNDERSTANDING OF ALL EDUCATION GIVEN VIA TEACH BACK. PATIENT EDUCATED ON TAKING A BABY ASA 81MG PO BID AND SIDE EFFECTS ON HYDROCODONE ORDERED. PATIENT LEFT WITH SPOUSE AT SIDE. DONATED WALKER TAKEN BY PATIENT. PATIENT DISCHARGED AND IN GOOD SPIRITS. NO SIGNS OF DISTRESS NOTED UPON DISCHARGE. ALL BELONGINGS TAKEN WITH. Addendum: 06/20/24 at 2034 by KARINE GRIJALVA RN RN Amended: Links added.
== END 2024-06-20 20:32 | disposition home or self-care (01) | DRG 494 ==
LOC: EDH 10:20 → EDHIP 10:21 → 4AH 17:50
PROVIDERS: ADMIT Orthopaedic Surgery; ATTEND Orthopaedic Surgery
PROC: 0QSJ04Z Reposition Right Fibula with Internal Fixation Device, Open Approach (ICD-10-PCS; 2024-06-18)
PROC: 0QSG04Z Reposition Right Tibia with Internal Fixation Device, Open Approach (ICD-10-PCS; principal; 2024-06-18 15:31)
DX: S82.851A Displaced trimalleolar fracture of right lower leg, initial encounter for closed fracture (principal); F17.210 Nicotine dependence, cigarettes, uncomplicated; Y93.01 Activity, walking, marching and hiking; W18.39XA Other fall on same level, initial encounter; Y93.89 Activity, other specified; Y92.89 Other specified places as the place of occurrence of the external cause; Y99.8 Other external cause status
CPT/HCPCS: 36415; 71045; 73610; 80053; 84703; 85025; 85610; 85730; G0378; J0690; J1100; J1650; J1885; J2270; J2371; J2405; J2710; J2795; J3010; J3490; J7030; A4216; A4222; A4223; A4649; A4930; A6223; C1713; Q4051